=== PATIENT | female | born 1970 | race Caucasian/White ===

== ENCOUNTER 2018-03-07 23:50 | Observation (INO) | payer BC ==
[~2018-03-07] VITALS: Ht 165.1 cm; Wt 97.5 kg
[~2018-03-07 23:50] MED LIST: ALBU.083IS; ALBU90OI; DULO60 PO; Desyrel50 MG PO; KETEK; METPRE4DP
[2018-03-08] MEDS ORDERED: DULO30 (00:16)
[2018-03-08] MEDS ORDERED: LAMO25 PO (00:16)
[2018-03-08 00:33] LABS: BASOPHILS ABSOLUTE AUTO 0.06 K/mm3 (0.00-0.23); BASOPHILS PERCENT AUTO 0 % (0-2); EOSINOPHILS ABSOLUTE AUTO 0.03 K/mm3 (0.00-0.68); EOSINOPHILS PERCENT AUTO 0 % (0-6); Hematocrit 42.9 % (33.0-51.0); Hemoglobin 14.3 g/dL (11.5-16.0); IMMATURE GRAN PERCENT AUTO 1 % (0-1); LYMPHOCYTES ABSOLUTE AUTO 5.28 K/mm3 (0.84-5.20); LYMPHOCYTES PERCENT AUTO 35 % (21-46); MONOCYTES ABSOLUTE AUTO 0.79 K/mm3 (0.16-1.47); MONOCYTES PERCENT AUTO 5 % (4-13); Mean Corpuscular HGB 32.6 pg (26.0-34.0); Mean Corpuscular HGB Conc 33.3 g/dL (31.5-36.5); Mean Corpuscular Volume 98 fL (80-100); NEUTROPHILS PERCENT AUTO 58 % (41-73); Platelet Count 405 K/mm3 (150-400); RDW Coefficient Variation 12.5 % (11.7-14.2); Red Blood Cell Count 4.39 M/mm3 (3.80-5.20); White Blood Cell Count 15.06 K/mm3 (4.00-11.30)
[2018-03-08 00:56] LABS: Alanine Aminotransfer (ALT/SGP 180 U/L (12-78); Albumin, Blood 3.7 g/dL (3.4-5.0); Albumin/Globulin Ratio 0.8 (0.8-1.8); Alk Phos 99 U/L (50-136); Anion Gap 13 mmol/L (6-16); Aspartate Aminotrans (AST/SGOT 68 U/L (12-37); Bilirubin, Total 0.1 mg/dL (0.1-1.0); Blood Urea Nitrogen 11 mg/dL (8-24); Bun/Creatinine Ratio 15.6 (12.0-20.0); CO2, Blood 22 mmol/L (21-32); Calcium, Blood 8.2 mg/dL (8.5-10.1); Chloride, Blood 110 mmol/L (98-108); Ethanol (Alcohol), Blood, Med 182 mg/dL; Globulin, Blood 4.5 g/dL (2.2-4.0); Glomerular Filtration Rate >60 (60-); Glucose, Blood 105 mg/dL (70-99); Potassium, Blood 3.9 mmol/L (3.5-5.5); Salicylate 3.2 mg/dL (2.8-20.0); Sodium, Blood 145 mmol/L (136-145); Thyroxine (T4) 11.7 ug/dL (4.8-13.9); Total Protein, Blood 8.2 g/dL (6.4-8.2)
[2018-03-08 01:00] LABS: Thyroid Stimulating Hormone 0.945 uIU/mL (0.360-4.800)
[2018-03-08 01:04] LABS: Acetaminophen, Random <2.0 ug/mL (10.0-30.0)
== END 2018-03-08 08:18 | disposition home or self-care (01) ==
LOC: ER 23:50 → EOR 23:51
PROVIDERS: Emergency Medicine
DX: T14.91XA Suicide attempt, initial encounter (principal); F33.2 Major depressive disorder, recurrent severe without psychotic features; F17.210 Nicotine dependence, cigarettes, uncomplicated; Z79.899 Other long term (current) drug therapy; X78.9XXA Intentional self-harm by unspecified sharp object, initial encounter
CPT/HCPCS: 80053; 84436; 84443; 85025; 99285; G0378; G0480; Q3014

== ENCOUNTER 2018-06-19 23:26 | Inpatient (IN) | payer BC ==
[~2018-06-19] VITALS: Ht 162.6 cm; Wt 104.9 kg
[~2018-06-19 23:26] MED LIST changes: +DULO30 PO; +LAMO25 PO
[2018-06-19 23:43] LABS: BASOPHILS PERCENT AUTO 1 % (0-2); EOSINOPHILS ABSOLUTE AUTO 0.41 K/mm3 (0.00-0.68); EOSINOPHILS PERCENT AUTO 3 % (0-6); Hematocrit 41.9 % (33.0-51.0); IMMATURE GRAN ABSOLUTE AUTO 0.04 K/mm3 (0.00-0.10); IMMATURE GRAN PERCENT AUTO 0 % (0-1); LYMPHOCYTES ABSOLUTE AUTO 5.73 K/mm3 (0.84-5.20); LYMPHOCYTES PERCENT AUTO 41 % (21-46); MONOCYTES ABSOLUTE AUTO 1.03 K/mm3 (0.16-1.47); MONOCYTES PERCENT AUTO 7 % (4-13); Mean Corpuscular HGB 32.6 pg (26.0-34.0); Mean Corpuscular HGB Conc 33.4 g/dL (31.5-36.5); Mean Corpuscular Volume 97 fL (80-100); Mean Platelet Volume 9.3 fL (9.1-12.4); NEUTROPHILS ABSOLUTE AUTO 6.78 K/mm3 (1.96-9.15); NEUTROPHILS PERCENT AUTO 48 % (41-73); Platelet Count 352 K/mm3 (150-400); RDW Coefficient Variation 11.8 % (11.7-14.2); RDW Standard Deviation 42.8 fL (35.1-46.3); White Blood Cell Count 14.09 K/mm3 (4.00-11.30)
[2018-06-20 00:09] LABS: Alanine Aminotransfer (ALT/SGP 100 U/L (12-78); Albumin, Blood 3.8 g/dL (3.4-5.0); Albumin/Globulin Ratio 0.9 (0.8-1.8); Alk Phos 89 U/L (50-136); Anion Gap 14 mmol/L (6-16); Aspartate Aminotrans (AST/SGOT 46 U/L (12-37); Bilirubin, Total 0.3 mg/dL (0.1-1.0); Blood Urea Nitrogen 9 mg/dL (8-24); Bun/Creatinine Ratio 13.4 (12.0-20.0); CO2, Blood 20 mmol/L (21-32); Calcium, Blood 8.3 mg/dL (8.5-10.1); Chloride, Blood 106 mmol/L (98-108); Creatinine, Blood 0.67 mg/dL (0.40-1.00); Ethanol (Alcohol), Blood, Med 146 mg/dL; Globulin, Blood 4.4 g/dL (2.2-4.0); Glomerular Filtration Rate >60 (60-); Glucose, Blood 94 mg/dL (70-99); Potassium, Blood 3.3 mmol/L (3.5-5.5); Salicylate 2.7 mg/dL (2.8-20.0); Sodium, Blood 140 mmol/L (136-145); Total Protein, Blood 8.2 g/dL (6.4-8.2)
[2018-06-20 00:19] LABS: International Normalized Ratio 0.98; Prothrombin Time Results 10.1 Sec (9.7-11.5)
[2018-06-20 00:24] LABS: Acetaminophen, Random <2.0 ug/mL (10.0-30.0)
[2018-06-20 00:29] LABS: Source, Urine Clean Catch
[2018-06-20 00:34] LABS: Bilirubin, Urine Neg (Neg); Blood, Urine Neg (Neg); Glucose Qualitative, Urine Neg (Neg); Ketones, Urine Neg (Neg); Leukocyte Esterase, Urine Neg (Neg); Nitrite, Urine Neg (Neg); Protein, Urine Neg (Neg); Specific Gravity, Urine 1.005 (1.003-1.022); Urobilinogen, Urine NORM (Normal)
[2018-06-20 00:35] LABS: Appearance, Urine Clear (Clear); Color, Urine Pale Yellow (P-Yellow)
[2018-06-20 00:43] LABS: U Amphetamine Screen Not Detected; U Barbituate Screen Not Detected; U Benzodiazapine Screen Not Detected; U Buprenorphine Screen Not Detected; U Cannabinoids Screen Not Detected; U Cocaine Screen Not Detected; U Methadone Screen Not Detected; U Methamphetamine Screen Not Detected; U Opiates Screen Not Detected; U Oxycodone Screen Not Detected; U Phencyclidine Screen Not Detected; U Propoxyphene Screen Not Detected
[2018-06-20 01:09] LABS: Glucose, Blood 91 mg/dL (70-99)
[2018-06-20] MEDS ORDERED: ALBU2.5V5 NEB (01:30)
--- NOTE | 2018-06-20 02:00 | NUR ---
PT ADMITTED TO ROOM ICU 8 FROM ED. REPORT RECEIVED. PT ARRIVES TO ROOM AT 0110. SLIDE TRANSFERRED TO BED. PT SOMEWHAT WITHDRAWN, ALTHOUGH WILL CONVERSE. VERBAL AGREEMENT MADE BY PT THAT SHE WILL NOT ATTEMPT TO HARM HERSELF WHILE IN THE HOSPITAL. PT'S ACCOMPANIES PT IN ROOM. ASSISTS WITH ADMISSION PROCESS. 1:1 SITTER PROVIDED FOR PT SAFETY. WILL REVIEW CHART AND PLAN OF CARE FOR THIS PT.
--- NOTE | 2018-06-20 04:00 | NUR ---
HAVE BEEN ABLE TO TITRATE LEVOPHED DOWN FROM 5 MCG'S DOWN TO 3 MCG'S. WILL CONTINUE TO ASSESS ABILITY TO TITRATE DOWN AND TO OFF. BLOOD PRESSURES HAVE BEEN MAINTAINING WITH MAP > 60. PT'S GOES HOME FOR THE NIGHT.
[2018-06-20 06:25] LABS: Hematocrit 37.2 % (33.0-51.0); Hemoglobin 12.2 g/dL (11.5-16.0); Mean Corpuscular HGB 32.3 pg (26.0-34.0); Mean Corpuscular HGB Conc 32.8 g/dL (31.5-36.5); Mean Corpuscular Volume 98 fL (80-100); Mean Platelet Volume 9.7 fL (9.1-12.4); Platelet Count 301 K/mm3 (150-400); RDW Standard Deviation 43.8 fL (35.1-46.3); Red Blood Cell Count 3.78 M/mm3 (3.80-5.20)
--- NOTE | 2018-06-20 06:30 | NUR ---
PT HAS NOT MADE ANY ATTEMPTS OR VOICED ANY IDEATIONS OR ACTIONS OF SELF HARM. HAVE BEEN ABLE TO WEAN LEVOPHED TO OFF. PT'S BLOOD PRESSURE MAINTAINS WITH MAP > 60. CONTINUE WITH 1:1 SITTER FOR PT SAFETY. WILL CONTINUE TO MONITOR PT, AND WILL REPORT OFF TO ONCOMING RN.
[2018-06-20 06:41] LABS: Alanine Aminotransfer (ALT/SGP 88 U/L (12-78); Albumin/Globulin Ratio 0.9 (0.8-1.8); Alk Phos 76 U/L (50-136); Anion Gap 11 mmol/L (6-16); Aspartate Aminotrans (AST/SGOT 47 U/L (12-37); Bilirubin, Total 0.1 mg/dL (0.1-1.0); Blood Urea Nitrogen 8 mg/dL (8-24); Bun/Creatinine Ratio 12.1 (12.0-20.0); CO2, Blood 21 mmol/L (21-32); Calcium, Blood 7.4 mg/dL (8.5-10.1); Chloride, Blood 113 mmol/L (98-108); Creatinine, Blood 0.66 mg/dL (0.40-1.00); Globulin, Blood 3.5 g/dL (2.2-4.0); Glomerular Filtration Rate >60 (60-); Glucose, Blood 154 mg/dL (70-99); Potassium, Blood 3.8 mmol/L (3.5-5.5); Sodium, Blood 145 mmol/L (136-145); Total Protein, Blood 6.5 g/dL (6.4-8.2)
[2018-06-20 09:44] LABS: International Normalized Ratio 1.08; Prothrombin Time Results 11.4 Sec (9.7-11.5)
--- NOTE | 2018-06-20 10:19 | NUR ---
PT IS REQUESTING TO SEE CLARK LEMUS INSTEAD OF DR. JARA BECAUSE SHE IS FAMILIAR WITH HER AND SEES HER OUTPT. CLARK ALLAN NOTIFIED AND SAID SHE IS OK WTIH THAT BUT SHE IS UNABLE TO COME IN TODAY AND WOULDN'T BE ABLE TO SEE PT UNTIL TOMORROW MORNING. DR. RAMOS NOTIFIED OF THIS TO SEE IF HE IS OK WITH PT NOT BEING SEEN UNTIL TOMORROW, BUT HE REQUESTED PT BE SEEN TODAY. THIS WAS REVIEWED WITH PT AND SHE UNDERSTANDS AND IS OK WITH SEEING DR. JARA. ALSO GOT ORDER FROMDR. RAMOS FOR REGULAR DIET AND REPEAT PT/INR SINCE IT WAS UNKNOWN IF PT TOOK COUMADIN.
--- NOTE | 2018-06-20 10:29 | NUR ---
DR. ACEVEDOTRATE BY TO SEE PT. PT'S BP HAS BEEN RUNNING LOW WITH SBP IN THE UPPER 80S. PT GETS DIZZY WHEN JUST SITTING UP IN BED. RECEIVED ORDER FOR 500ML NS BOLUS AND TO INCREASE FLUID RATE TO 125ML/HR.
--- NOTE | 2018-06-20 12:12 | NUR ---
REASSESSMENT: PT HAS BEEN RESTING IN BED THROUGHOUT THE MORNING. SHE DENIES CURRENT SI. SHE SPOKE WITH THE LEAD CARE MANAGER THIS MORNING. HER BP RESPONDED WELL TO THE FLUID BOLUS WITH SBP 110 NOW. RATE REMAINS IN THE LOW 60S. LUNGS ARE CLEAR. SHE MAINTAINS SPO2 AROUND 94% ON RA WHILE AWAKE, BUT NEEDS 1-2L/NC WHEN ASLEEP TO MAINTAIN SPO2>90. SHE IS EATING AND TOLERATING A DIET. PT'S HAS BEEN AT THE BEDSIDE ON AND OFF THROUGHOUT THE MORNING. CONTINUING TO MONITOR.
--- NOTE | 2018-06-20 16:53 | NUR ---
SHIFT SUMMARY: PT HAS BEEN ALERT AND ORIENTED THROUGHOUT THE SHIFT. SHE CONTINUES TO DENY CURRENT SUICIDAL IDEATION. SHE WAS SEEN BY DR. JARA THIS EVENING AND HER HOLD WAS DROPPED. HR CONTINUES TO BE SR WITH RATE IN THE LOW 60S. SBP CONTINUES TO BE IN THE UPPER 80S AND 90S, BUT PT STATES SHE NORMALLY RUNS IN THE 90S FOR HER SBP. LUNGS ARE CLEAR, ON RA. SHE IS REQUESTING TO GO HOME TONIGHT. ISTRATE NOTIFIED AND SAID HE WOULD COME BY AND REASSESS THE PT.
--- NOTE | 2018-06-20 17:21 | NUR ---
Per admit trigger, I met with Ruth Ann to offer prayer and emotional support. she was very open with me about her sorrow since the loss of her sister @5yrs ago. She tells me she was not trying to , but "needed things to stop." She responded well to gentle awake overnight counselor and spiritual direction. She allowed me to provide prayer at bedside. [employer] will remain available.
--- NOTE | 2018-06-20 18:11 | NUR ---
SPOKE WITH DR. RAMOS PT'S BP HAS BEEN DOING WELL AND RECEIVED OK TO TRANSFER PT TO MEDICAL FLOOR WITH TELEMETRY. ALSO RECEIVED OK TO STOP IV FLUIDS. PT UPDATED ON THIS AND IS OK WITH STAYING OVERNIGHT.
--- NOTE | 2018-06-20 18:54 | NUR ---
ASSUMING CARE OF PT AT THIS TIME. PT REPORT RECEIVED AT BEDSIDE WITH OFFGOING NURSE, LIDIA GAFFNEY. PT AMBULATING TO BATHROOM UPON ENTERING THE ROOM. VS STABLE - SEE VS FS. PT DOES NOT APPEAR TO BE IN DISTRESS AT THIS TIME. WILL REVIEW PLAN OF CARE.
--- NOTE | 2018-06-20 19:15 | NUR ---
ASSESSMENT / DR. RAMOS PT CALM, QUIET, COOPERATIVE, RESPONDS TO VERBAL STIMULI, SPONT OPENS EYES, A&O X4, FOLLOWS COMMANDS, FLAT AFFECT. PT C/O DIZZINESS WITH AMBULATION. SENSATIO NINTACT. DENIES N/T. PT FLOWERS. NORMAL STRNGTH. NO WEAKNESS NOTED. 1P SBA WITH AMBULATION TO ASSIST WITH LINES/CORDS. PT DENIES PAIN/DISCOMFORT AT THIS TIME. NO S/SX OF PAIN/DISCOMFORT NOTED. LUNGS CLEAR. PT ON RA. OXY SAT >95%. RR 18. DENIES SOB. NO COUGHING. AFEBRILE. SB TO NSR. HR 50'S TO 60'S. BP STABLE - SEE VS FS. LEVOPHED OFF. STRONG PULSES. WARM, PINK SKIN. NO RITESH NOTED. ACTIVE BT X4 QUADRANTS. ABD DIST NORMAL, SOFT, NONTENDER. NO N/V. NO BM AT THIS TIME. PT VOIDS WITH BATHROOM PRIVELEGES. YELLOW, CLEAR URINE NOTED. CL RIGHT IJ - SL. PIV X2 - SL. DR. RAMOS AT BEDSIDE AT THIS TIME. DR. RAMOS INSTRUCTED TO MAINTAIN CL T/O SHIFT. DR. RAMOS PLANNING TO D/C CL TOMORROW AM. PT REFUSES TO START HOME MEDICATIONS AT THIS TIME D/T DISCHARGE TOMORROW. DR. RAMOS PLANNING TO D/C PT TOMORROW AM.
--- NOTE | 2018-06-20 21:18 | NUR ---
POISON CONTROL POISON CONTROL CALLED ICU AT THIS TIME. UPDATED POISON CONTROL REGARDING PT'S STATUS, VS, AND LABS. NO NEW RECOMMENDATIONS FROM POISON CONTROL AT THIS TIME. POISON CONTROL PLANNING TO CALL ICU TOMORROW AM.
[2018-06-21 03:57] LABS: BASOPHILS ABSOLUTE AUTO 0.06 K/mm3 (0.00-0.23); BASOPHILS PERCENT AUTO 1 % (0-2); EOSINOPHILS ABSOLUTE AUTO 0.46 K/mm3 (0.00-0.68); EOSINOPHILS PERCENT AUTO 5 % (0-6); Hematocrit 35.2 % (33.0-51.0); Hemoglobin 11.7 g/dL (11.5-16.0); IMMATURE GRAN ABSOLUTE AUTO 0.02 K/mm3 (0.00-0.10); IMMATURE GRAN PERCENT AUTO 0 % (0-1); LYMPHOCYTES PERCENT AUTO 52 % (21-46); MONOCYTES ABSOLUTE AUTO 0.78 K/mm3 (0.16-1.47); MONOCYTES PERCENT AUTO 8 % (4-13); Mean Corpuscular HGB 33.4 pg (26.0-34.0); Mean Corpuscular HGB Conc 33.2 g/dL (31.5-36.5); Mean Corpuscular Volume 101 fL (80-100); Mean Platelet Volume 9.6 fL (9.1-12.4); NEUTROPHILS ABSOLUTE AUTO 3.52 K/mm3 (1.96-9.15); NEUTROPHILS PERCENT AUTO 35 % (41-73); Platelet Count 245 K/mm3 (150-400); RDW Coefficient Variation 12.2 % (11.7-14.2); RDW Standard Deviation 45.1 fL (35.1-46.3); White Blood Cell Count 10.04 K/mm3 (4.00-11.30)
[2018-06-21 04:16] LABS: International Normalized Ratio 2.28; Prothrombin Time Results 22.4 Sec (9.7-11.5)
[2018-06-21 04:17] LABS: Alanine Aminotransfer (ALT/SGP 94 U/L (12-78); Albumin, Blood 2.9 g/dL (3.4-5.0); Albumin/Globulin Ratio 0.9 (0.8-1.8); Alk Phos 92 U/L (50-136); Anion Gap 5 mmol/L (6-16); Aspartate Aminotrans (AST/SGOT 57 U/L (12-37); Bilirubin, Total 0.3 mg/dL (0.1-1.0); Blood Urea Nitrogen 11 mg/dL (8-24); Bun/Creatinine Ratio 14.3 (12.0-20.0); CO2, Blood 27 mmol/L (21-32); Calcium, Blood 7.6 mg/dL (8.5-10.1); Chloride, Blood 111 mmol/L (98-108); Creatinine, Blood 0.77 mg/dL (0.40-1.00); Globulin, Blood 3.2 g/dL (2.2-4.0); Glomerular Filtration Rate >60 (60-); Glucose, Blood 92 mg/dL (70-99); Potassium, Blood 3.8 mmol/L (3.5-5.5); Sodium, Blood 143 mmol/L (136-145); Total Protein, Blood 6.1 g/dL (6.4-8.2)
--- NOTE | 2018-06-21 04:56 | NUR ---
SHIFT ASSESSMENT NO ACUTE CHANGES NOTED T/O SHIFT. PT SLEPT FOR APPROXIMATELY 6 HOURS T/O SHIFT. PT CALM, QUIET, COOPERATIVE, RESPONDS TO VERAL STIMULI, SPONT OPENS EYES, A&O X4, FOLLOWS COMMANDS, FLAT AFFECT, DENIES SI. PT C/O OF OCCASSIONAL DIZZINESS WITH AMBUALTION. SENSATIO NINTACT. DENIES N/T. PT FLOWERS. NORMAL STRENGH. NO WEAKNESS NTOED. PT AMBULATES INDEPENDENTLY IN ROOM. PT DENIES ROBERT/DISCOMFORT T/O SHIFT. NO S/SX OF PAIN/DISCOMFORT T/O SHIFT. LUNGS CLEAR. PT ON RA. OXY SAT >90%. RR 12 TO 16. DENIES SOB. NO COUGHING. AFEBRILE. SB TO NSR. HR 50'S TO 60'S. BP STABLE - SEE VS FS. LEVOPHED OFF T/O SHIFT. STRONG PULSES. WARM, PINK SKIN. EDEMA NOTED. ACTIVE BT X4 QUADRANTS. ABD DIST IS NORMAL, SOFT, NONTENDER. NO N/V. BM X1. PT VOIDS WITH BATHROOM PRIVELEGES. YELLOW, CLEAR URINE NOTED. CL RIGHT IJ - SL. PIV X2 - SL. WILL CONT TO MONITOR PT AND WILL PROVIDE BEDSIDE REPORT TO ONCOMING NURSE THIS AM.
--- NOTE | 2018-06-21 07:08 | NUR ---
ASSUMED CARE REPORT FROM GULSHAN NIEVES. PATIENT A&O, SLEEPING WHEN NOT DISTURBED. DENIES SI, DENIES PAIN.
--- NOTE | 2018-06-21 08:13 | NUR ---
PATIENT CONTINUES TO SLEEP. V8 ORDERED WITH BREAKFAST TRAY FOR ELEVATED PT
--- NOTE | 2018-06-21 09:11 | NUR ---
OOB TO CHAIR FOR BREAKFAST. SON AT BEDSIDE
--- NOTE | 2018-06-21 10:14 | NUR ---
MD VISITS DR. RAMOS AND DR. WILLS BOTH IN. DISCHARGE ORDERS REC'D
--- NOTE | 2018-06-21 10:15 | NUR ---
CENTRAL LINE REMOVED PER POLICY. PIV X 2 REMOVED WNL
--- NOTE | 2018-06-21 10:50 | NUR ---
PATIENT AMBULATED OUT OF UNIT WITH SON, BRUCE AT 1030. WILL FOLLOW UP WITH CLARK LEMUS AND DR. WILLS. REFUSED RX FOR ZOFRAN AND ALBUTEROL
== END 2018-06-21 10:30 | disposition home or self-care (01) | DRG 918 ==
LOC: ER 23:26 → ICUW 06-20 00:10 → ICUE 06-20 00:10
PROVIDERS: Emergency Medicine; Family Medicine; ADMIT Internal Medicine
PROC: 05HM33Z Insertion of Infusion Device into Right Internal Jugular Vein, Percutaneous Approach (ICD-10-PCS; principal; 2018-06-20)
PROC: 3E02340 Introduction of Influenza Vaccine into Muscle, Percutaneous Approach (ICD-10-PCS; 2018-06-20)
DX: T45.512A Poisoning by anticoagulants, intentional self-harm, initial encounter (principal); F33.9 Major depressive disorder, recurrent, unspecified; T44.7X2A Poisoning by beta-adrenoreceptor antagonists, intentional self-harm, initial encounter; T38.3X2A Poisoning by insulin and oral hypoglycemic [antidiabetic] drugs, intentional self-harm, initial encounter; T49.0X2A Poisoning by local antifungal, anti-infective and anti-inflammatory drugs, intentional self-harm, initial encounter; I95.9 Hypotension, unspecified; F17.210 Nicotine dependence, cigarettes, uncomplicated; F10.10 Alcohol abuse, uncomplicated; J45.909 Unspecified asthma, uncomplicated; Z23 Encounter for immunization
CPT/HCPCS: 36415; 36556; 51702; 71045; 80053; 81003; 81025; 82947; 83605; 84443; 85025; 85027; 85610; 93005; 93010; 96361; 96365; 99285-25; C1751; G0480; J1610; J2405; J3430; J7030; J7040; J7060

== ENCOUNTER 2021-01-27 18:48 | Emergency (ER) | payer SELFPAY ==
[~2021-01-27] VITALS: Ht 165.1 cm; Wt 97.5 kg
[~2021-01-27 18:48] MED LIST changes: +ALBU2.5V5 NEB
== END 2021-01-27 21:09 | disposition left against medical advice (07) ==
LOC: ER 18:48
DX: Z53.21 Procedure and treatment not carried out due to patient leaving prior to being seen by health care provider (principal)
CPT/HCPCS: 99282

== ENCOUNTER 2023-03-12 10:01 | Emergency (ER) | payer OTHER ==
[~2023-03-12] VITALS: Ht 167.6 cm; Wt 102.1 kg
[2023-03-12] MEDS ORDERED: Robaxin750 MG PO (15:00)
[2023-03-12 15:12] VITALS: BP 131/81
== END 2023-03-12 15:13 | disposition home or self-care (01) ==
LOC: ER 10:01
DX: S16.1XXA Strain of muscle, fascia and tendon at neck level, initial encounter (principal); S30.0XXA Contusion of lower back and pelvis, initial encounter; S20.212A Contusion of left front wall of thorax, initial encounter; Y04.0XXA Assault by unarmed brawl or fight, initial encounter; J45.909 Unspecified asthma, uncomplicated; F32.A Depression, unspecified; Z79.899 Other long term (current) drug therapy; Z87.891 Personal history of nicotine dependence
CPT/HCPCS: 70450; 71046; 72040; 72100; 96372; 99284-25; A9270; J1885